=== PATIENT | female | born 1995 | race Caucasian/White ===

== ENCOUNTER 2017-02-01 20:09 | Emergency (ER) | payer BC, OTHER ==
[~2017-02-01] VITALS: Ht 162.6 cm; Wt 49.9 kg
--- NOTE | 2017-02-01 20:45 | ED Cough/URI ---
General Chief Complaint: Cough/Cold/Flu Symptoms Stated Complaint: RIB PAIN Nursing Triage Note: PT TO ED 7 W/ C/O RIB PAIN, LUNG PAIN WHEN BREATHING ONSET "A FEW WEEKS". REPORTS DOES HAVE A COUGH THAT IS PRODUCTIVE. NO OTHER C/O VOICED Source: patient Exam Limitations: no limitations History of Present Illness Time seen by provider: 20:36 Initial Comments Patient presents to ER by private conveyance with a chief complaint of about a week of feeling a little off and having a cough in the last to 3 days been a little short of breath. She's having now in the past couple days a chest pain that she describes as being in the epigastric and right lower ribs area that is worse when she takes deep breaths or coughs. Her cough is nonproductive. She does not have a history of immunocompromise she is not on any medications and does not have a history of foreign travel or living with anybody with a chronic cough or TB. She does not have asthma and she does not smoke cigarettes nor does she drink alcohol or use illicit drugs. She denies any nausea vomiting diarrhea. She says she was seen in [facility] 2 days ago and was started on Carafate and a PPI which she has been taking with no relief of her pain. She has no fevers chills rash. Allergies and Home Medications Allergies Coded Allergies: No Known Drug Allergies (Unverified , 02/01/17) Home Medications Unable to Obtain Active Prescriptions or Reported Meds Constitutional: No chills, No diaphoresis EENTM: No ear pain, No eye pain Respiratory: see HPI, cough, No phlegm, short of breath (mild), No wheezing Cardiovascular: see HPI, chest pain, No edema, No Hx of Intervention, No palpitations, No syncope Gastrointestinal: No abdominal pain, No constipation, No diarrhea, No nausea Genitourinary: No discharge, No dysuria : No LMP: Jan 07, 2017 Musculoskeletal: No back pain, No joint pain Skin: No pruritus, No rash Psychiatric/Neurological: Denies Headache, Denies Numbness, Denies Paresthesia Past Kunomrb-Glvxgl-Mecgmz Hx Patient Social History Alcohol Use: Rarely Uses Recreational Drug Use: No Smoking Status: Current Everyday Smoker Type Used: Cigarettes Recent Foreign Travel: No Contact w/Someone Who Travel: No Recent Infectious Disease Expo: No Recent Hopitalizations: No Physical Abuse: No Sexual Abuse: No Mistreated: No Fear: No Surgeries History of Surgeries: No Respiratory History of Respiratory Disorde: No Cardiovascular History of Cardiac Disorders: No Neurological History of Neurological Disord: No Genitourinary History of Genitourinary Disor: No Gastrointestinal History of Gastrointestinal Di: No Musculoskeletal History of Musculoskeletal Dis: No Endocrine History of Endocrine Disorders: No HEENT History of HEENT Disorders: No Cancer History of Cancer: No Psychosocial History of Psychiatric Problem: No Suicide Risk Score: 0 Integumentary History of Skin or Integumenta: No Blood Transfusions History of Blood Disorders: No Physical Exam Vital Signs Vital Sign - Last 12Hours 02/01/17 20:28 Temp 98.1 Pulse 87 Resp 20 B/P (MAP) 112/82 Pulse Ox 97 O2 Delivery Room Air Capillary Refill : Less Than 3 Seconds General Appearance: WD/WN, no apparent distress Eyes: Bilateral Eye Normal Inspection, Bilateral Eye PERRL, Bilateral Eye EOMI HEENT: PERRL/EOMI, pharynx normal Neck: non-tender, supple, normal inspection Respiratory: chest non-tender, lungs clear, normal breath sounds, no respiratory distress, no accessory muscle use Cardiovascular: normal peripheral pulses, regular rate, rhythm, no edema, no gallop Gastrointestinal: normal bowel sounds, non tender, soft, no organomegaly Extremities: no pedal edema, normal capillary refill Neurologic/Psychiatric: alert, oriented x 3 Skin: normal color, warm/dry Lymphatic: no adenopathy Progress/Results/Core Measures Results/Orders My Orders Orders - CALLY CELESTIN Chest Pa/Lat (2 View) (02/01/17 20:40) Urine Bedside (02/01/17 20:40) Vital Signs/I&O Vital Sign - Last 12Hours 02/01/17 20:28 Temp 98.1 Pulse 87 Resp 20 B/P (MAP) 112/82 Pulse Ox 97 O2 Delivery Room Air Blood Pressure Mean: 92 Progress Note : Time: 20:44 Progress Note While gastritis is certainly on the differential this sounds like pleuritic chest pain and is most likely given her fairly benign course going to be viral and bronchial in nature. We'll get a chest x-ray essentially ascertain that she is not with a bedside urine test. If there is no evidence of a pneumonia I would probably start her on a short course of steroids by mouth. She is not having any wheezing nor does she endorse any so don't think that inhaled albuterol is going to be very helpful to her. Diagnostic Imaging Diagonstic Imaging: Xray Plain Films/CT/US/NM/MRI: chest Comments NAME: JULIANA MARY MED REC#: [id number] PHYSICIAN: CALLY CELESTIN MD CC: TYRESE CHIU MD; CALLY CELESTIN Page 1 of 1 RADIOLOGY REPORT VIA [facility], [facility]. [place], [place] CC: TYRESE CHIU MD; CALLY CELESTIN Page 1 of 1 RADIOLOGY REPORT NAME: JULIANA MARY MED REC#: [id number] PT STATUS: REG ER : 1995 PHYSICIAN: CALLY CELESTIN MD ADMIT DATE: 02/01/17/ER Signed Date of Exam: 02/01/17 CHEST PA/LAT (2 VIEW) INDICATION: 21-year-old female presents with chest pain for 2 weeks COMPARISONS: None FINDINGS: PA and lateral films of the chest show slight prominence of the central lung markings. No consolidations are seen. There is no effusion or pneumothorax. Soft tissues and visualized bony thorax are unremarkable. IMPRESSION: 1. Findings suggest some mild reactive airway disease/bronchitis but no consolidations. 2. Soft tissues and visualized bony thorax are grossly unremarkable. Dictated by: Dictated on workstation # [id number] Dict: 02/01/172058 Trans: 02/01/172105 Interpreted by: TYRESE CHIU MD Electronically signed by: TYRESE CHIU MD 02/01/172105 Reviewed: Reviewed by Me Departure Impression Impression: Primary Impression: Bronchitis Disposition: 01 HOME, SELF-CARE Condition: Stable Departure-Patient Inst. Decision time for Depature: 21:45 Referrals: NO,LOCAL PHYSICIAN (PCP/Family) Primary Care Physician Patient Instructions: Acute Bronchitis, Adult (DC) Add. Discharge Instructions: Drink plenty of fluids and if you're having coughing fits take 2 puffs of the albuterol as we prescribed. Start taking the prednisone one tablet twice a day by mouth with food for the next 5 days. All discharge instructions reviewed with patient and/or family. Voiced understanding. Scripts Prednisone (Prednisone) 20 Mg Tab 20 MG PO BID for 5 Days, #10 TAB 0 Refills Prov: CALLY CELESTIN 02/01/17 Albuterol Sulfate (PROAIR HFA) 1 Puff Puff 2 PUFF IH Q4H Y for COUGH, #1 EACH 0 Refills 1 PUFF = 90 MCG Prov: CALLY CELESTIN 02/01/17 Work/School Note: Work Release Form Date Seen in the Emergency Department: Feb 01, 2017 Return to Work: Feb 02, 2017 Restrictions: No Restrictions CALLY CELESTIN Feb 01, 2017 20:45
--- NOTE | 2017-02-01 21:04 | Diagnostic Imaging Report ---
INDICATION: 21-year-old female presents with chest pain for 2 weeks COMPARISONS: None FINDINGS: PA and lateral films of the chest show slight prominence of the central lung markings. No consolidations are seen. There is no effusion or pneumothorax. Soft tissues and visualized bony thorax are unremarkable. IMPRESSION: 1. Findings suggest some mild reactive airway disease/bronchitis but no consolidations. 2. Soft tissues and visualized bony thorax are grossly unremarkable. Dictated by: Dictated on workstation # [id number]
[2017-02-01] MEDS ORDERED: PRD20T PO (21:48)
[2017-02-01] MEDS ORDERED: RT-ALBUINH IH (21:48)
[2017-02-01] MEDS: predniSONE 20 MG TAB PO ONE (21:53)
[2017-02-01 21:54] VITALS: BP 0/0
== END 2017-02-01 21:54 | disposition home or self-care (01) ==
LOC: ER 20:13
DX: J40 Bronchitis, not specified as acute or chronic (principal); F17.210 Nicotine dependence, cigarettes, uncomplicated
CPT/HCPCS: 71020; 84703; 99283